=== PATIENT | male | born 1990 | race Two or more races ===

== ENCOUNTER 2020-01-23 10:43 | Emergency (ER) | payer SELFPAY ==
[~2020-01-23] VITALS: Ht 170.2 cm; Wt 74.6 kg
--- NOTE | 2020-01-23 11:47 | NUR ---
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 JEFF
--- NOTE | 2020-01-23 11:49 | NUR ---
PT C/O LEFT LEG PAIN X3 DAYS, REPORTS HE WAS MOVING FURNITURE THURSDAY NIGHT AND LEG BEGAN HURTING AFTER. CALL LIGHT PLACED WITHIN REACH.
[2020-01-23 12:31] VITALS: BP 128/69
--- NOTE | 2020-01-23 12:58 | NUR ---
ULTRASOUND AT BEDSIDE.
[2020-01-23] MEDS ORDERED: IBUPROFEN 600 MG TABLET ONE (13:49)
[2020-01-23] MEDS ORDERED: IBUPROFEN 600 MG TABLET PO ONE (14:00)
== END 2020-01-23 13:59 | disposition home or self-care (01) ==
LOC: ED 12:51
DX: G89.11 Acute pain due to trauma (principal); M25.562 Pain in left knee; X58.XXXA Exposure to other specified factors, initial encounter; Y93.89 Activity, other specified; Y92.89 Other specified places as the place of occurrence of the external cause; Y99.8 Other external cause status
CPT/HCPCS: 99284

== ENCOUNTER 2020-01-25 18:14 | Emergency (ER) | payer OTHER ==
[~2020-01-25] VITALS: Ht 170.2 cm; Wt 73.5 kg
[2020-01-25] MEDS ORDERED: CEFTRIAXONE 250 MG IM ONE (19:00)
[2020-01-25] MEDS ORDERED: AZITHROMYCIN 500 MG TABLET PO ONE (19:00)
--- NOTE | 2020-01-25 19:46 | NUR ---
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
[2020-01-25] MEDS ORDERED: CEFTRIAXONE 250 MG ONE (19:49)
[2020-01-25] MEDS ORDERED: AZITHROMYCIN 500 MG TABLET ONE (19:49)
[2020-01-25 20:48] VITALS: BP 122/78
== END 2020-01-25 20:49 | disposition home or self-care (01) ==
LOC: ED 20:30
DX: A54.9 Gonococcal infection, unspecified (principal); A55 Chlamydial lymphogranuloma (venereum); R36.9 Urethral discharge, unspecified
CPT/HCPCS: 87491; 87591; 96372; 99283; J0696